=== PATIENT | male | born 1945 | race Two or more races ===

== ENCOUNTER 2022-10-04 09:43 | Inpatient (IN) | payer OTHER ==
[~2022-10-04] VITALS: Ht 165.1 cm; Wt 60.8 kg
[2022-10-05] MEDS ORDERED: ZESTRIL5 MG PO (11:14)
== END 2022-10-18 14:16 | disposition home or self-care (01) | DRG 330 ==
LOC: O/R 10-10 08:10 → SURH 10-10 09:30
PROVIDERS: Internal Medicine Geriatric Medicine; ADMIT Colon & Rectal Surgery; ATTEND Colon & Rectal Surgery
PROC: 0DTN4ZZ Resection of Sigmoid Colon, Percutaneous Endoscopic Approach (ICD-10-PCS; 2022-10-10)
PROC: 0DTP4ZZ Resection of Rectum, Percutaneous Endoscopic Approach (ICD-10-PCS; 2022-10-10)
PROC: 07BB4ZZ Excision of Mesenteric Lymphatic, Percutaneous Endoscopic Approach (ICD-10-PCS; 2022-10-10)
PROC: 07BC4ZZ Excision of Pelvis Lymphatic, Percutaneous Endoscopic Approach (ICD-10-PCS; 2022-10-10)
PROC: 3E0F7SF Introduction of Other Gas into Respiratory Tract, Via Natural or Artificial Opening (ICD-10-PCS; 2022-10-10)
PROC: 0D1B4Z4 Bypass Ileum to Cutaneous, Percutaneous Endoscopic Approach (ICD-10-PCS; principal; 2022-10-10 14:30)
PROC: 0D9670Z Drainage of Stomach with Drainage Device, Via Natural or Artificial Opening (ICD-10-PCS; 2022-10-13)
PROC: 02HV33Z Insertion of Infusion Device into Superior Vena Cava, Percutaneous Approach (ICD-10-PCS; 2022-10-13)
PROC: 3E0436Z Introduction of Nutritional Substance into Central Vein, Percutaneous Approach (ICD-10-PCS; 2022-10-13)
PROC: 4A12X4Z Monitoring of Cardiac Electrical Activity, External Approach (ICD-10-PCS; 2022-10-15)
DX: C20 Malignant neoplasm of rectum (principal); K56.7 Ileus, unspecified; R59.0 Localized enlarged lymph nodes; E87.6 Hypokalemia; I49.9 Cardiac arrhythmia, unspecified; D69.6 Thrombocytopenia, unspecified; F10.10 Alcohol abuse, uncomplicated; I11.9 Hypertensive heart disease without heart failure; Z85.048 Personal history of other malignant neoplasm of rectum, rectosigmoid junction, and anus; Z92.21 Personal history of antineoplastic chemotherapy

== ENCOUNTER 2022-10-24 19:13 | Inpatient (IN) | payer OTHER ==
[~2022-10-24] VITALS: Ht 165.1 cm; Wt 61.2 kg
[~2022-10-24 19:13] MED LIST: ZESTRIL5 MG PO
[2022-10-24] MEDS ORDERED: FUSION PLUS CA1 EACH PO (19:20)
[2022-10-24] MEDS ORDERED: GNP B-50 COMPL0.4 MG PO (19:21)
[2022-10-24] MEDS ORDERED: ACID REDUCER20 M1 PO (19:21)
[2022-10-24] MEDS ORDERED: ABANEU-SL TABL1 EACH SL (19:21)
[2022-10-24] MEDS ORDERED: CHLORDIAZEPOXI1 EACH PO (19:22)
--- NOTE | 2022-10-24 19:22 | NUR ---
SE RECIBE PTE MASCULINO ALERTA Y ORIENTADO EN LAS LAUREN ESFERAS EN COMPANIA DE FAMILIAR EN AMBULANCIA QUIEN REFIERE SANGRADO RECTAL DESDE PATI. PTE DE CON ILEOSTOMIA Y ELIDA GUPTA COLOCADO LLQ, DRENANDO EGRESO COLOR AMARILLO TJ COLOCADO EL PASADO 22 DE ELOINA EN [facility]. SE PRESENTA PTE A Y SE UBICA EN AREA DE OBSERVACION PARA EVALUACION.
--- NOTE | 2022-10-24 21:48 | NUR ---
SE EDUCA A PTE SOBRE [place] MEDICO IAN REFIERE ENTENDER, SE ANAT MUESTRAS DE LABORATORIO UTILIZANDO MEDIDAS ASEPTICAS, SE COLOCA H/L SHAKA DE EDEMA. SE ADMNISTRAN MEDICAMENTOS LOS CUALES TOLERA. SE NOTIFICA ESTUDIO DE CT PENDIENTE A REALIZAR.
[2022-10-24 22:17] LABS: HEMATOCRIT 34.4 % (39.0-48.0); HEMOGLOBIN 11.6 g/dL (13-16.00); MEAN CELL VOLUME 97.1 fL (80.0-100.00); MEAN CORPUSCULAR HEMOGLOBIN 32.8 pg (27.00-32.0); MEAN CORPUSCULAR HGB CONC 33.8 g/dl (32.0-36.0); PLATELET COUNT 330 K/uL (150-450); RED BLOOD COUNT 3.54 M/uL (4.00-6.00); RED CELL DISTRIBUTION WIDTH 13.4 % (11.5-14.5)
--- NOTE | 2022-10-25 01:21 | NUR ---
SE RECIBE PTE ALERTA Y ORIENTADO X3 EN EDI CON BARANDAS ELEVADAS EN COMPANIA DE FAMILIAR. PTE EN POSICION SEMI LUCERO, PTE SE RECIBE CANALIZADO EN BRAZO DERECHO ANGIO #18 AREA SHAKA DE EDEMA Y DE ENROJECIMIENTO. PTE CON DRIP .9NSS BAJANDO A 100ML/HR. PTE CON VENDAJE LIMPIO Y SECO DE HERIDA QUIRURGICA. PTE CON ABDOMEN BLANDO Y DEPRESIBLE. PTE CON ILEOCTOMIA Y DRENAJE SALLY GIVENS DRENANDO 25ML COLOR AMARILLO. SE CANALIZA EN BRAZO MILAGRO ANGIO #18 AREA SHAKA DE EDEMA Y DE ENROJECIMIENTO. SE COMIENZA DRIP DE PROTONIX 80MG/100ML BAJANDO A 10ML/HR.SE EDUCA A PTE FAMILIAR SOBRE TRATAMIENTO MEDICO.
[2022-10-25 06:29] LABS: HEMATOCRIT 31.4 % (39.0-48.0); HEMOGLOBIN 10.9 g/dL (13-16.00); MEAN CELL VOLUME 95.8 fL (80.0-100.00); MEAN CORPUSCULAR HEMOGLOBIN 33.4 pg (27.00-32.0); MEAN CORPUSCULAR HGB CONC 34.9 g/dl (32.0-36.0); PLATELET COUNT 287 K/uL (150-450); RED BLOOD COUNT 3.27 M/uL (4.00-6.00); RED CELL DISTRIBUTION WIDTH 13.1 % (11.5-14.5)
--- NOTE | 2022-10-25 08:00 | NUR ---
SE RECIBE PTE ALERTA Y Y ORIENTADO X 3 EN EDI CON RESPUESTA A ESTIMULOS ACOMPANADO DE FAMILIAR.SE OBSERVA CON LIQUIDOS DE MANTENIMIENTO DE 0.9NSS/100ML BAJANDO 100ML/HR CON ANGIO #18 EN BRAZO LT AREA SE OBSERVA SHAKA DE EDEMA O ERITEMA CON BUEN TUGOR. SE OBSERVA EN ABDOMEN ILEOSTOMIA CON BUEN TUGOR EN PIEL. SE OBSERVA CON CAMBIOS.
[2022-10-26] MEDS ORDERED: LOPERAMIDE2 MG (15:46)
[2022-10-26] MEDS ORDERED: LISINOPRIL5 MG (15:46)
[2022-10-26] MEDS ORDERED: OMEPRAZOLE40 MG (15:46)
[2022-10-26 16:33] LABS: HEMATOCRIT 32.1 % (39.0-48.0); HEMOGLOBIN 10.5 g/dL (13-16.00); MEAN CELL VOLUME 97.4 fL (80.0-100.00); MEAN CORPUSCULAR HEMOGLOBIN 31.8 pg (27.00-32.0); MEAN CORPUSCULAR HGB CONC 32.7 g/dl (32.0-36.0); PLATELET COUNT 272 K/uL (150-450); RED CELL DISTRIBUTION WIDTH 13.1 % (11.5-14.5)
[2022-10-28 13:03] LABS: HEMATOCRIT 28.8 % (39.0-48.0); HEMOGLOBIN 9.5 g/dL (13-16.00); MEAN CELL VOLUME 97.2 fL (80.0-100.00); MEAN CORPUSCULAR HEMOGLOBIN 32.1 pg (27.00-32.0); PLATELET COUNT 211 K/uL (150-450); RED BLOOD COUNT 2.96 M/uL (4.00-6.00); RED CELL DISTRIBUTION WIDTH 13.1 % (11.5-14.5)
[2022-10-28 19:31] LABS: HEMATOCRIT 28.4 % (39.0-48.0); HEMOGLOBIN 9.9 g/dL (13-16.00); MEAN CELL VOLUME 94.8 fL (80.0-100.00); MEAN CORPUSCULAR HEMOGLOBIN 32.8 pg (27.00-32.0); MEAN CORPUSCULAR HGB CONC 34.7 g/dl (32.0-36.0); PLATELET COUNT 231 K/uL (150-450); RED CELL DISTRIBUTION WIDTH 13.6 % (11.5-14.5)
[2022-10-29 08:00] LABS: HEMATOCRIT 30.2 % (39.0-48.0); HEMOGLOBIN 10.5 g/dL (13-16.00); MEAN CORPUSCULAR HEMOGLOBIN 32.9 pg (27.00-32.0); MEAN CORPUSCULAR HGB CONC 34.6 g/dl (32.0-36.0); PLATELET COUNT 219 K/uL (150-450); RED BLOOD COUNT 3.18 M/uL (4.00-6.00); RED CELL DISTRIBUTION WIDTH 13.2 % (11.5-14.5)
[2022-10-30 06:40] LABS: HEMATOCRIT 26.7 % (39.0-48.0); HEMOGLOBIN 9.2 g/dL (13-16.00); MEAN CELL VOLUME 94.6 fL (80.0-100.00); MEAN CORPUSCULAR HEMOGLOBIN 32.7 pg (27.00-32.0); MEAN CORPUSCULAR HGB CONC 34.6 g/dl (32.0-36.0); PLATELET COUNT 211 K/uL (150-450); RED BLOOD COUNT 2.82 M/uL (4.00-6.00); RED CELL DISTRIBUTION WIDTH 13.1 % (11.5-14.5)
[2022-10-31 08:53] LABS: HEMATOCRIT 30.4 % (39.0-48.0); HEMOGLOBIN 10.5 g/dL (13-16.00); MEAN CELL VOLUME 94.7 fL (80.0-100.00); MEAN CORPUSCULAR HEMOGLOBIN 32.6 pg (27.00-32.0); MEAN CORPUSCULAR HGB CONC 34.4 g/dl (32.0-36.0); PLATELET COUNT 233 K/uL (150-450); RED BLOOD COUNT 3.21 M/uL (4.00-6.00); RED CELL DISTRIBUTION WIDTH 13.4 % (11.5-14.5)
[2022-11-02 07:48] LABS: HEMATOCRIT 31.7 % (39.0-48.0); HEMOGLOBIN 10.5 g/dL (13-16.00); MEAN CELL VOLUME 95.5 fL (80.0-100.00); MEAN CORPUSCULAR HEMOGLOBIN 31.5 pg (27.00-32.0); PLATELET COUNT 217 K/uL (150-450); RED BLOOD COUNT 3.32 M/uL (4.00-6.00); RED CELL DISTRIBUTION WIDTH 13.3 % (11.5-14.5)
[2022-11-04 07:35] LABS: HEMATOCRIT 29.4 % (39.0-48.0); HEMOGLOBIN 10.4 g/dL (13-16.00); MEAN CELL VOLUME 93.5 fL (80.0-100.00); MEAN CORPUSCULAR HGB CONC 35.3 g/dl (32.0-36.0); PLATELET COUNT 201 K/uL (150-450); RED BLOOD COUNT 3.14 M/uL (4.00-6.00); RED CELL DISTRIBUTION WIDTH 13.5 % (11.5-14.5)
[2022-11-06] MEDS ORDERED: GNP B-50 COMPL0.4 MG PO (12:50)
[2022-11-06] MEDS ORDERED: ABANEU-SL TABL1 EACH SL (12:50)
[2022-11-06] MEDS ORDERED: VITAMIN B-1100 MG PO (12:50)
[2022-11-06] MEDS ORDERED: FUSION PLUS CA1 EACH PO (12:50)
[2022-11-06] MEDS ORDERED: PRE PROTEIN1 EACH PO (12:50)
[2022-11-06] MEDS ORDERED: MAGNESIUM CHLOR70 MG PO (12:50)
[2022-11-06] MEDS ORDERED: LISINOPRIL5 MG PO (12:50)
[2022-11-06] MEDS ORDERED: OMEPRAZOLE40 MG PO (12:50)
[2022-11-06] MEDS ORDERED: MELATONIN10 M2 PO (12:50)
== END 2022-11-06 22:03 | DRG 393 ==
LOC: ER 19:13 → SURH 10-25 16:12 → SURG 10-25 16:12 → SURH 10-25 17:06
PROVIDERS: General Practice; Internal Medicine; Internal Medicine Geriatric Medicine; ADMIT Colon & Rectal Surgery; ATTEND Colon & Rectal Surgery
PROC: BW28ZZZ Computerized Tomography (CT Scan) of Head (ICD-10-PCS; 2022-10-26)
PROC: 02HV33Z Insertion of Infusion Device into Superior Vena Cava, Percutaneous Approach (ICD-10-PCS; 2022-10-26)
PROC: 0D9P30Z Drainage of Rectum with Drainage Device, Percutaneous Approach (ICD-10-PCS; principal; 2022-10-27)
PROC: B54NZZZ Ultrasonography of Left Upper Extremity Veins (ICD-10-PCS; 2022-10-30)
PROC: BW21YZZ Computerized Tomography (CT Scan) of Abdomen and Pelvis using Other Contrast (ICD-10-PCS; 2022-11-01)
DX: K91.89 Other postprocedural complications and disorders of digestive system (principal); A41.9 Sepsis, unspecified organism; G92.8 Other toxic encephalopathy; K61.1 Rectal abscess; F10.239 Alcohol dependence with withdrawal, unspecified; F10.27 Alcohol dependence with alcohol-induced persisting dementia; D64.9 Anemia, unspecified; I10 Essential (primary) hypertension; G72.89 Other specified myopathies; K43.5 Parastomal hernia without obstruction or gangrene; I80.9 Phlebitis and thrombophlebitis of unspecified site

== ENCOUNTER 2022-11-30 15:51 | Inpatient (IN) | payer OTHER ==
[~2022-11-30] VITALS: Ht 165.1 cm; Wt 46.7 kg
[~2022-11-30 15:51] MED LIST changes: +ABANEU-SL TABL1 EACH SL; +ACID REDUCER20 M1 PO; +CHLORDIAZEPOXI1 EACH PO; +FUSION PLUS CA1 EACH PO; +GNP B-50 COMPL0.4 MG PO; +LISINOPRIL5 MG; +LISINOPRIL5 MG PO; +LOPERAMIDE2 MG; +MAGNESIUM CHLOR70 MG PO; +MELATONIN10 M2 PO; +OMEPRAZOLE40 MG; +OMEPRAZOLE40 MG PO; +PRE PROTEIN1 EACH PO; +VITAMIN B-1100 MG PO
--- NOTE | 2022-11-30 15:58 | NUR ---
PACIENTE MASCULINO ALERTA Y ORIENTADO X3, REFIERE TENER SANGRADO RECTAL, FUE OPERADO POR .
--- NOTE | 2022-11-30 17:01 | NUR ---
SE RECIBE PTE ALERTA ORIENTADO X3.SE ANAT MUESTRAS DE LABORATORIO USANDO MEDIDAS ASEPTICAS.SE ADMINISTRAN MEDICAMENTOS FRANCISCO ORDEN MEDICA.MANEJADO POR FARRUKH RODRIGUEZ.
[2022-11-30 17:06] LABS: HEMATOCRIT 37.7 % (39.0-48.0); HEMOGLOBIN 12.6 g/dL (13-16.00); MEAN CORPUSCULAR HEMOGLOBIN 30.4 pg (27.00-32.0); MEAN CORPUSCULAR HGB CONC 33.4 g/dl (32.0-36.0); PLATELET COUNT 311 K/uL (150-450); RED BLOOD COUNT 4.14 M/uL (4.00-6.00); RED CELL DISTRIBUTION WIDTH 13.7 % (11.5-14.5)
[2022-11-30 17:24] LABS: INR 1.22; PARTIAL THROMBOPLASTIN TIME 28.2 SECONDS (22.0-34.0); PROTHROMBIN TIME 12.6 SECONDS (9.0-11.5)
[2022-11-30 17:28] LABS: BILIRUBIN TOTAL 0.4 mg/dL (0.3-1.2); CALCIUM 9.6 mg/dL (8.5-10.1); CREATININE SERUM 0.8 mg/dL (0.70-1.30); GFR 94.24; GLOBULINA 5.8 G/DL (2.4-3.5); POTASSIUM 4.73 mEq/L (3.5-5.1); TOTAL PROTEIN 8.8 gm/dL (6.4-8.2)
--- NOTE | 2022-11-30 23:18 | NUR ---
SE RECIBE PACIENTE DE TURNO ANTERIOR, ALERTA Y ORIENTADO EN MICKEY LAUREN ESFERAS UBICADO EN K5 EN EDI CON BARANDAS ELEVADAS A NIVEL MAS BAJO EN COMPANIA DE FAMILAIR. IV PATENTE EN RA CON ANGIO #20, SHAKA DE EDEMA O ERITEMA. RECIBIEDNO IV FLUIDS. PACIENTE EN ESPERA DE DR. GASTELUM
--- NOTE | 2022-12-01 07:38 | NUR ---
SE REECIBE PTE MASCULINO DE 76 YRS ALERTA CONCIENTE Y TRANQUILO , EN EDI CON BARABAS ELEVADA, SE LE NEISHA S/V LA CUAL SE DOCUEMTA. SE MAHTIENE EN ESPERA DE MEDICO CONSULTORCON EL DEVI ALVARADO. SE MANTIENE EN ESPEREA DE NASOGASTRICO CON SUBCION INTEMITENTE. SE MANTIENE BAJO OBSERVACION POR CAMBIOS.
--- NOTE | 2022-12-01 07:48 | NUR ---
SE RECIBE PTE MASCULINO DE 76 YRS ALERTA CONCIENTE Y TRANQUILO EN CAMA CON BARABDAS ELEVADA . PTE EN [facility] DE FAMILAIR. PTE EN ESPERA DE MEDICO CONSULTOR POR SANGREDO GASTROINTESTINAL. SE OBSERVA PTE CON .96NSS A 150 EN ANTBRASO DERECHO CON ANGIO #20. SE OBSERVA PTE DESAYUNDO. SE MANTIENE BAJO OBSERVACION POR CAMBIOS PTE AL MOMENTO SHAKA DE DOLOR.
--- NOTE | 2022-12-01 16:18 | NUR ---
SE RECIBE PTE MASCULINO DE TURNO ANTERIOR QUIEN AL MOMENTO NO REFIERE DOLOR. PTE AL MOMENTO CONSULTADO CON DR TOUS. PTE AL MOMENTO CANALIZADO EN GRAZO DERECHO CON ANGIO #20 CON DRIP DE 0.9% NSS A 150 ML/HRA
[2022-12-02 08:39] LABS: HEMATOCRIT 31.4 % (39.0-48.0); HEMOGLOBIN 10.3 g/dL (13-16.00); MEAN CELL VOLUME 92.4 fL (80.0-100.00); MEAN CORPUSCULAR HEMOGLOBIN 30.2 pg (27.00-32.0); MEAN CORPUSCULAR HGB CONC 32.7 g/dl (32.0-36.0); PLATELET COUNT 248 K/uL (150-450); RED CELL DISTRIBUTION WIDTH 13.5 % (11.5-14.5)
[2022-12-02 08:45] LABS: ALBUMIN 2.2 gm/dL (3.4-5.0); BILIRUBIN TOTAL 0.45 mg/dL (0.3-1.2); BILIRUBIN,CONJUGATED 0.2 mg/dL (0.0-0.2); BILIRUBIN,UNCONJUGATED 0.25 mg/dL (0.0-0.6); CALCIUM 8.3 mg/dL (8.5-10.1); CHOL HDL RATIO 4.5 (0-5.0); CREATININE SERUM 0.77 mg/dL (0.70-1.30); GFR 98.49; GLOBULINA 3.9 G/DL (2.4-3.5); POTASSIUM 3.9 mEq/L (3.5-5.1); TOTAL PROTEIN 6.1 gm/dL (6.4-8.2)
[2022-12-02 08:52] LABS: ERYTHROCYTE SEDIMENTATION RATE 107 mm/hr
[2022-12-02 08:54] LABS: C-REACTIVE PROTEIN 4.06 MG/DL (0.00-0.29)
[2022-12-02 09:17] LABS: INR 1.22; PARTIAL THROMBOPLASTIN TIME 30.5 SECONDS (22.0-34.0); PROTHROMBIN TIME 12.6 SECONDS (9.0-11.5)
[2022-12-02 10:33] LABS: URINE APPEARANCE Turbid; URINE BILIRRUBIN Negative (NEGATIVE); URINE BLOOD Negative; URINE COLOR Dark Yellow; URINE GLUCOSE Negative (NEGATIVE); URINE LEUKOCYTE Trace; URINE NITRATE Negative; URINE PROTEIN 30 (NEGATIVE); URINE UROBILINOGEN 0.2 E.U./dl
[2022-12-02 10:37] LABS: URINE EPITHELIAL CELLS 22.4 uL (0.0-38.8); URINE RBC 8.3 uL (0.0-20.8); URINE WBC 18.3 uL (0.0-23.2)
[2022-12-02 10:46] LABS: URINE CRYSTALS MANY /HPF; ob NEGATIVE (NEGATIVE)
== END 2022-12-03 19:56 | disposition home or self-care (01) | DRG 394 ==
LOC: ER 15:52 → SURH 12-01 18:24
PROVIDERS: General Practice; ADMIT Colon & Rectal Surgery; ATTEND Colon & Rectal Surgery
PROC: BW21YZZ Computerized Tomography (CT Scan) of Abdomen and Pelvis using Other Contrast (ICD-10-PCS; principal; 2022-11-30)
DX: K61.1 Rectal abscess (principal); C20 Malignant neoplasm of rectum; K56.7 Ileus, unspecified; I11.9 Hypertensive heart disease without heart failure; Z87.891 Personal history of nicotine dependence

== ENCOUNTER 2023-03-26 07:14 | Outpatient (CLI) | payer OTHER | END 2023-03-26 07:18 | disposition home or self-care (01) | LOC: RX STUDY 07:14 | PROVIDERS: ATTEND Colon & Rectal Surgery | DX: C20 Malignant neoplasm of rectum (principal) ==

== ENCOUNTER 2023-08-21 11:00 | Inpatient (IN) | payer OTHER ==
[2023-08-21] MEDS ORDERED: TRIUMEQ TABLET1 EACH PO (13:26)
[2023-08-21] MEDS ORDERED: FUSION PLUS CA1 EACH PO (13:26)
[2023-08-21] MEDS ORDERED: OMEPRAZOLE MAGN20 MG PO (13:26)
[2023-08-29] MEDS ORDERED: PHYTONADIONE 10 MG/ML AMPUL IV NR (06:00)
[2023-08-29] MEDS ORDERED: SERTRALINE HCL25 MG (09:41)
[2023-08-29] MEDS ORDERED: CEFTRIAXONE SODIUM 2,000 MG VIAL IV ONE (13:00)
[2023-08-29] MEDS ORDERED: SUGAMMADEX SODIUM 200 MG/2 ML VIAL IV ONE (13:00)
[2023-08-29] MEDS ORDERED: BUPIVACAINE HCL/PF 0.25% 30ML VIAL InF ONE (13:00)
[2023-08-29] MEDS ORDERED: METRONIDAZOLE/SODIUM CHLORIDE 500 MG/100 ML PIGGYBACK IV ONE (13:00)
[2023-08-29] MEDS ORDERED: CHLORHEXIDINE GLUCONATE 120 ML BOTTLE TOP ONE (13:00)
[2023-08-29] MEDS ORDERED: LIDOCAINE HCL 1%/EPINEPHRINE 20ML VIAL IJ ONE (13:00)
[2023-08-29] MEDS ORDERED: ONDANSETRON HCL 2 MG/ML VIAL IV PRN (13:15)
[2023-08-29] MEDS ORDERED: MORPHINE SULFATE 4 MG/ML CARTRIDGE IV PRN (13:15)
[2023-08-29] MEDS ORDERED: RINGERS SOLUTION,LACTATED 1,000 ML IV SCH (13:15)
[2023-08-29] MEDS ORDERED: OxyCODONE HCL 5 MG TABLET (ROXICODONE) PO PRN (13:15)
[2023-08-29] MEDS ORDERED: ENALAPRILAT DIHYDRATE 1.25 MG/ML VIAL IV PRN (13:45)
[2023-08-29] MEDS ORDERED: ACETAMINOPHEN 500 MG GEL..CAP PO SCH (14:00)
[2023-08-29 15:29] LABS: HEMATOCRIT 38.2 % (39.0-48.0); HEMOGLOBIN 12.8 g/dL (13-16.00); MEAN CELL VOLUME 92.8 fL (80.0-100.00); MEAN CORPUSCULAR HEMOGLOBIN 31.1 pg (27.00-32.0); MEAN CORPUSCULAR HGB CONC 33.5 g/dl (32.0-36.0); PLATELET COUNT 149 K/uL (150-450); RED BLOOD COUNT 4.11 M/uL (4.00-6.00); RED CELL DISTRIBUTION WIDTH 15.8 % (11.5-14.5)
[2023-08-29] MEDS ORDERED: POLYETHYLENE GLYCOL 3350 17 GM BLIST.PACK PO SCH (17:00)
[2023-08-29] MEDS ORDERED: GABAPENTIN 300 MG CAPSULE PO SCH (17:00)
[2023-08-29] MEDS ORDERED: SIMETHICONE 125 MG CAPSULE PO SCH (17:00)
[2023-08-29] MEDS ORDERED: CELECOXIB 200 MG CAPSULE PO SCH (17:00)
[2023-08-29] MEDS ORDERED: METOCLOPRAMIDE HCL 5 MG/ML VIAL IV SCH (17:00)
[2023-08-29] MEDS ORDERED: HYOSCYAMINE SULFATE 0.125 MG TAB.SUBL SL SCH (17:00)
[2023-08-29] MEDS ORDERED: FAMOTIDINE/PF 20 MG/2 ML VIAL IV PUSH SCH (21:00)
[2023-08-30] MEDS ORDERED: PANTOPRAZOLE SODIUM 40 MG/VIAL VIAL IV SCH (06:00)
[2023-08-30 07:18] LABS: HEMOGLOBIN 10.3 g/dL (13-16.00); MEAN CORPUSCULAR HEMOGLOBIN 31.1 pg (27.00-32.0); MEAN CORPUSCULAR HGB CONC 34.2 g/dl (32.0-36.0); PLATELET COUNT 193 K/uL (150-450)
[2023-08-30 07:30] LABS: ALBUMIN 2.8 gm/dL (3.4-5.0); CALCIUM 8.5 mg/dL (8.5-10.1); CREATININE SERUM 0.87 mg/dL (0.70-1.30); GFR 85.32; MAGNESIUM 1.5 mg/dL (1.8-2.4); PHOSPHOROUS 5.1 mg/dL (2.5-4.9); POTASSIUM 4.39 mEq/L (3.5-5.1)
[2023-08-30] MEDS ORDERED: MAGNESIUM SULFATE IN WATER 50 ML IV NR (08:15)
[2023-08-30] MEDS ORDERED: LACTOBACILLUS ACIDOPHILUS 1 CAP CAP PO SCH (09:00)
[2023-08-30] MEDS ORDERED: SOD FERRIC GLUC COMPLX/SUCROSE 62.5 MG in 0.9 % SODIUM CHLORIDE 50 ML IV SCH (09:00)
[2023-08-30] MEDS ORDERED: Cyanocobalamin/Mecobalamin 1 TAB.SL SL SCH (09:00)
[2023-08-30] MEDS ORDERED: LACTULOSE 20 G/30 ML BLIST.PACK PO SCH (09:00)
[2023-08-30] MEDS ORDERED: CEFADROXIL 500 MG CAPSULE PO SCH (11:28)
[2023-08-30] MEDS ORDERED: ENOXAPARIN SODIUM 40 MG/0.4 ML SYRINGE SUBCUTANEO SCH (17:00)
[2023-08-31 06:10] LABS: HEMATOCRIT 27.9 % (39.0-48.0); HEMOGLOBIN 9.6 g/dL (13-16.00); MEAN CELL VOLUME 89.6 fL (80.0-100.00); MEAN CORPUSCULAR HEMOGLOBIN 30.9 pg (27.00-32.0); MEAN CORPUSCULAR HGB CONC 34.5 g/dl (32.0-36.0); PLATELET COUNT 178 K/uL (150-450); RED BLOOD COUNT 3.11 M/uL (4.00-6.00); RED CELL DISTRIBUTION WIDTH 15.7 % (11.5-14.5)
[2023-08-31] MEDS ORDERED: PANTOPRAZOLE SODIUM 80 MG in 0.9 % SODIUM CHLORIDE 100 ML IV SCH (06:15)
[2023-08-31 06:30] LABS: CALCIUM 8.9 mg/dL (8.5-10.1); CREATININE SERUM 0.9 mg/dL (0.70-1.30); GFR 82.04; MAGNESIUM 1.6 mg/dL (1.8-2.4); PHOSPHOROUS 2.6 mg/dL (2.5-4.9); POTASSIUM 3.22 mEq/L (3.5-5.1)
[2023-08-31] MEDS ORDERED: MAGNESIUM SULFATE IN WATER 50 ML IV NR (08:45)
[2023-08-31] MEDS ORDERED: POTASSIUM CHLORIDE 20MEQ/100ML H2O PB IV NR (08:45)
[2023-08-31] MEDS ORDERED: ENOXAPARIN SODIUM 40 MG/0.4 ML SYRINGE SUBCUTANEO SCH (09:00)
[2023-09-01 08:05] LABS: HEMATOCRIT 28.7 % (39.0-48.0); MEAN CORPUSCULAR HGB CONC 33.8 g/dl (32.0-36.0); PLATELET COUNT 154 K/uL (150-450); RED BLOOD COUNT 3.15 M/uL (4.00-6.00); RED CELL DISTRIBUTION WIDTH 15.7 % (11.5-14.5)
[2023-09-01 08:09] LABS: CALCIUM 8.6 mg/dL (8.5-10.1); CREATININE SERUM 0.74 mg/dL (0.70-1.30); GFR 102.83; MAGNESIUM 1.8 mg/dL (1.8-2.4); POTASSIUM 3.71 mEq/L (3.5-5.1)
[2023-09-01 08:10] LABS: HEMOGLOBIN 9.7 g/dL (13-16.00); MEAN CORPUSCULAR HEMOGLOBIN 30.7 pg (27.00-32.0)
[2023-09-01 08:33] LABS: PHOSPHOROUS 1.9 mg/dL (2.5-4.9)
[2023-09-01] MEDS ORDERED: POTASSIUM PHOS,M-BASIC-D-BASIC 3 MM/ML VIAL IV NR (10:30)
[2023-09-03] MEDS ORDERED: HYOSCYAMINE0.125 M1 SL (08:59)
[2023-09-03] MEDS ORDERED: INTESTINEX680 M1 PO (09:00)
[2023-09-03] MEDS ORDERED: SIMETHICONE125 M1 PO (09:00)
[2023-09-03] MEDS ORDERED: GABAPENTIN300 MG PO (09:00)
[2023-09-03] MEDS ORDERED: PAIN RELIEVER500 M2 PO (09:00)
[2023-09-03] MEDS ORDERED: POLY119PG PO (09:01)
[2023-09-03] MEDS ORDERED: CELEBREX200MG PO (09:01)
== END 2023-09-03 10:29 | disposition home or self-care (01) | DRG 349 ==
LOC: SURG 08-29 07:56 → O/R 08-29 07:56 → SURH 08-29 11:00 → SURG 08-29 14:10
PROVIDERS: Internal Medicine Geriatric Medicine; ADMIT Colon & Rectal Surgery; ATTEND Colon & Rectal Surgery
PROC: 0DBB4ZZ Excision of Ileum, Percutaneous Endoscopic Approach (ICD-10-PCS; principal; 2023-08-29 12:45)
DX: C20 Malignant neoplasm of rectum (principal)

== ENCOUNTER 2024-02-08 15:02 | Inpatient (IN) | payer OTHER ==
[~2024-02-08] VITALS: Ht 165.1 cm; Wt 44.5 kg
[~2024-02-08 15:02] MED LIST changes: +CELEBREX200MG PO; +GABAPENTIN300 MG PO; +HYOSCYAMINE0.125 M1 SL; +INTESTINEX680 M1 PO; +OMEPRAZOLE MAGN20 MG PO; +PAIN RELIEVER500 M2 PO; +POLY119PG PO; +SERTRALINE HCL25 MG; +SIMETHICONE125 M1 PO; +TRIUMEQ TABLET1 EACH PO
[2024-02-08] MEDS ORDERED: 0.9 % SODIUM CHLORIDE 1,000 ML IV SCH ×2 (15:30→19:45)
[2024-02-08] MEDS ORDERED: PIPERACILLIN/TAZOBACTAM SODIUM 3.375 GM VIAL IV ONE (15:30)
[2024-02-08 16:32] LABS: HEMATOCRIT 29.7 % (39.0-48.0); HEMOGLOBIN 9.9 g/dL (13-16.00); MEAN CELL VOLUME 85.3 fL (80.0-100.00); MEAN CORPUSCULAR HEMOGLOBIN 28.5 pg (27.00-32.0); MEAN CORPUSCULAR HGB CONC 33.4 g/dl (32.0-36.0); PH,URINE 6.5 (5.0-8.0); PLATELET COUNT 235 K/uL (150-450); RED BLOOD COUNT 3.49 M/uL (4.00-6.00); RED CELL DISTRIBUTION WIDTH 16.3 % (11.5-14.5); URINE APPEARANCE Turbid; URINE BILIRRUBIN Negative (NEGATIVE); URINE BLOOD Small; URINE COLOR Yellow; URINE GLUCOSE Negative (NEGATIVE); URINE KETONE Trace (NEGATIVE); URINE LEUKOCYTE Large; URINE NITRATE Negative; URINE PROTEIN 30 (NEGATIVE); URINE UROBILINOGEN 0.2 E.U./dl
[2024-02-08 16:35] LABS: URINE CAST 1.91 uL (0.0-1.40); URINE EPITHELIAL CELLS 27.8 uL (0.0-38.8); URINE RBC 10.1 uL (0.0-20.8)
[2024-02-08 16:49] LABS: INR 1.29; PARTIAL THROMBOPLASTIN TIME 31.6 SECONDS (22.0-34.0); PROTHROMBIN TIME 13.8 SECONDS (9.0-11.5); URINE WBC > 5548.3 uL (0.0-23.2)
[2024-02-08 16:54] LABS: ALBUMIN 2.2 gm/dL (3.4-5.0); BILIRUBIN TOTAL 0.26 mg/dL (0.3-1.2); CALCIUM 8.7 mg/dL (8.5-10.1); CREATININE SERUM 0.72 mg/dL (0.70-1.30); GFR 105.85; GLOBULINA 4.5 G/DL (2.4-3.5); POTASSIUM 3.88 mEq/L (3.5-5.1); TOTAL PROTEIN 6.7 gm/dL (6.4-8.2); URINE MUCUS SCANT
[2024-02-08] MEDS ORDERED: METRONIDAZOLE/SODIUM CHLORIDE 100 ML IV SCH (19:36)
[2024-02-08] MEDS ORDERED: THIAMINE HCL 100 MG/ML 2 ML VIAL IV SCH (19:36)
[2024-02-08] MEDS ORDERED: ONDANSETRON HCL 4 MG in 0.9 % SODIUM CHLORIDE 50 ML IV PRN (19:45)
[2024-02-08] MEDS ORDERED: CIPROFLOXACIN IN 5 % DEXTROSE 200 ML IV SCH (21:00)
[2024-02-08] MEDS ORDERED: LORazepam 2 MG/ML VIAL IV ONE (21:00)
[2024-02-09 00:59] VITALS: BP 127/70; O2SAT 99
[2024-02-09 08:00] VITALS: BP 111/58; O2SAT 97
[2024-02-09] MEDS ORDERED: LISINOPRIL 2.5 MG TABLET PO SCH (09:00)
[2024-02-09] MEDS ORDERED: CHLORDIAZEPOXIDE HCL 25 MG CAPSULE PO SCH (09:00)
[2024-02-09] MEDS ORDERED: FAMOTIDINE/PF 20 MG in 0.9 % SODIUM CHLORIDE 8 ML IV PUSH SCH (09:00)
[2024-02-09] MEDS ORDERED: ENOXAPARIN SODIUM 40 MG/0.4 ML SYRINGE SUBCUTANEO SCH (09:00)
[2024-02-09 16:17] VITALS: BP 130/61; O2SAT 100
[2024-02-09] MEDS ORDERED: AA 4.25%/CAL/LYTES/DEXT 5% 1,000 ML PERIFERAL SCH (17:00)
[2024-02-10 00:20] VITALS: BP 109/70; O2SAT 99
[2024-02-10 08:00] VITALS: BP 137/72; O2SAT 98
[2024-02-10 16:06] VITALS: BP 125/72; O2SAT 98
[2024-02-11 00:14] VITALS: BP 111/74; O2SAT 98
[2024-02-11 07:56] LABS: HEMATOCRIT 27.8 % (39.0-48.0); HEMOGLOBIN 9.3 g/dL (13-16.00); MEAN CELL VOLUME 85.8 fL (80.0-100.00); MEAN CORPUSCULAR HEMOGLOBIN 28.8 pg (27.00-32.0); MEAN CORPUSCULAR HGB CONC 33.6 g/dl (32.0-36.0); PLATELET COUNT 252 K/uL (150-450); RED BLOOD COUNT 3.24 M/uL (4.00-6.00); RED CELL DISTRIBUTION WIDTH 15.3 % (11.5-14.5)
[2024-02-11 08:51] LABS: ALBUMIN 2.1 gm/dL (3.4-5.0); BILIRUBIN TOTAL 0.32 mg/dL (0.3-1.2); CALCIUM 8.2 mg/dL (8.5-10.1); CREATININE SERUM 0.48 mg/dL (0.70-1.30); GFR 169.01; GLOBULINA 3.6 G/DL (2.4-3.5); POTASSIUM 4.03 mEq/L (3.5-5.1); TOTAL PROTEIN 5.7 gm/dL (6.4-8.2)
[2024-02-11 10:15] VITALS: BP 150/73; O2SAT 99
[2024-02-11] MEDS ORDERED: SOD FERRIC GLUC COMPLX/SUCROSE 62.5 MG in 0.9 % SODIUM CHLORIDE 50 ML IV SCH (12:00)
[2024-02-11] MEDS ORDERED: ENALAPRILAT DIHYDRATE 1.25 MG/ML VIAL IV PRN (12:45)
[2024-02-11] MEDS ORDERED: AMPICILLIN SODIUM/SULBACTAM NA 3,000 MG VIAL IV NR (14:30)
[2024-02-11 17:00] VITALS: BP 152/78; O2SAT 97
[2024-02-11] MEDS ORDERED: AMINO ACIDS/PROTEIN HYDROLYS 30 ML BLIST.PACK PO SCH (17:00)
[2024-02-11] MEDS ORDERED: Cyanocobalamin/Mecobalamin 1 TAB.SL SL SCH (17:00)
[2024-02-11] MEDS ORDERED: AMPICILLIN SODIUM/SULBACTAM NA 3,000 MG VIAL IV SCH (20:00)
[2024-02-11] MEDS ORDERED: CHLORDIAZEPOXIDE HCL 25 MG CAPSULE PO SCH (21:00)
[2024-02-12 01:17] VITALS: BP 105/59; O2SAT 100
[2024-02-12 06:51] LABS: HEMATOCRIT 28.7 % (39.0-48.0); HEMOGLOBIN 9.6 g/dL (13-16.00); MEAN CELL VOLUME 84.7 fL (80.0-100.00); MEAN CORPUSCULAR HEMOGLOBIN 28.5 pg (27.00-32.0); MEAN CORPUSCULAR HGB CONC 33.7 g/dl (32.0-36.0); PLATELET COUNT 277 K/uL (150-450); RED BLOOD COUNT 3.38 M/uL (4.00-6.00); RED CELL DISTRIBUTION WIDTH 15.5 % (11.5-14.5)
[2024-02-12 07:20] LABS: ERYTHROCYTE SEDIMENTATION RATE 54 mm/hr
[2024-02-12 07:26] LABS: CALCIUM 8.5 mg/dL (8.5-10.1); CREATININE SERUM 0.63 mg/dL (0.70-1.30); GFR 123.49; MAGNESIUM 1.9 mg/dL (1.8-2.4); PHOSPHOROUS 3.1 mg/dL (2.5-4.9); POTASSIUM 4.4 mEq/L (3.5-5.1)
[2024-02-12 07:31] LABS: C-REACTIVE PROTEIN 5.09 MG/DL (0.00-0.29)
[2024-02-12 08:00] VITALS: BP 123/57; O2SAT 98
[2024-02-12] MEDS ORDERED: VANCOMYCIN HCL 125 MG/7.5 ML BLIST.PACK PO SCH (14:00)
[2024-02-12 16:00] VITALS: BP 108/59; O2SAT 96
[2024-02-13 00:10] VITALS: BP 112/69; O2SAT 97
[2024-02-13 08:00] VITALS: BP 126/65; O2SAT 100
[2024-02-13 16:00] VITALS: BP 113/71; O2SAT 97
[2024-02-14 01:29] VITALS: BP 132/70; O2SAT 97
[2024-02-14 09:20] VITALS: BP 135/69; O2SAT 100
[2024-02-14 10:05] LABS: HEMATOCRIT 26.2 % (39.0-48.0); MEAN CELL VOLUME 84.5 fL (80.0-100.00); MEAN CORPUSCULAR HGB CONC 33.8 g/dl (32.0-36.0); PLATELET COUNT 276 K/uL (150-450); RED CELL DISTRIBUTION WIDTH 15.6 % (11.5-14.5)
[2024-02-14 10:06] LABS: MEAN CORPUSCULAR HEMOGLOBIN 28.7 pg (27.00-32.0)
[2024-02-14 10:07] LABS: HEMOGLOBIN 8.9 g/dL (13-16.00)
[2024-02-14] MEDS ORDERED: FUROsemide 20 MG/2 ML VIAL IV SCH (10:15)
[2024-02-14 10:46] LABS: CALCIUM 8.2 mg/dL (8.5-10.1); CREATININE SERUM 0.48 mg/dL (0.70-1.30); GFR 169.01; MAGNESIUM 1.8 mg/dL (1.8-2.4); PHOSPHOROUS 2.8 mg/dL (2.5-4.9); POTASSIUM 4.48 mEq/L (3.5-5.1)
[2024-02-14 11:03] LABS: C-REACTIVE PROTEIN 1.56 MG/DL (0.00-0.29)
[2024-02-14 16:00] VITALS: BP 117/69; O2SAT 97
[2024-02-15] VITALS: BP 131/71; O2SAT 98
[2024-02-15 08:00] VITALS: BP 132/65; O2SAT 98
[2024-02-15 16:16] VITALS: BP 125/58; O2SAT 96
[2024-02-16 01:22] VITALS: BP 122/62; O2SAT 96
[2024-02-16 06:46] LABS: HEMATOCRIT 35.7 % (39.0-48.0); HEMOGLOBIN 11.8 g/dL (13-16.00); MEAN CELL VOLUME 83.9 fL (80.0-100.00); MEAN CORPUSCULAR HEMOGLOBIN 27.8 pg (27.00-32.0); MEAN CORPUSCULAR HGB CONC 33.1 g/dl (32.0-36.0); PLATELET COUNT 282 K/uL (150-450); RED BLOOD COUNT 4.26 M/uL (4.00-6.00)
[2024-02-16 07:34] LABS: CALCIUM 8.6 mg/dL (8.5-10.1); CREATININE SERUM 0.55 mg/dL (0.70-1.30); GFR 144.44; MAGNESIUM 1.7 mg/dL (1.8-2.4); PHOSPHOROUS 3.3 mg/dL (2.5-4.9); POTASSIUM 4.15 mEq/L (3.5-5.1)
[2024-02-16 08:00] VITALS: BP 127/69; O2SAT 100
[2024-02-16 16:00] VITALS: BP 92/58; O2SAT 97
[2024-02-16] MEDS ORDERED: MAGNESIUM SULFATE/D5W 100 ML IV NR (16:00)
[2024-02-17] VITALS: BP 108/65; O2SAT 95
[2024-02-17 08:00] VITALS: BP 120/78; O2SAT 97
[2024-02-17 16:00] VITALS: BP 103/62; O2SAT 96
[2024-02-18 01:05] VITALS: BP 130/79; O2SAT 100
[2024-02-18 06:09] LABS: HEMATOCRIT 35.3 % (39.0-48.0); HEMOGLOBIN 11.7 g/dL (13-16.00); MEAN CELL VOLUME 84.8 fL (80.0-100.00); MEAN CORPUSCULAR HEMOGLOBIN 28.2 pg (27.00-32.0); MEAN CORPUSCULAR HGB CONC 33.2 g/dl (32.0-36.0); PLATELET COUNT 252 K/uL (150-450); RED BLOOD COUNT 4.17 M/uL (4.00-6.00)
[2024-02-18 06:46] LABS: ALBUMIN 2.2 gm/dL (3.4-5.0); BILIRUBIN TOTAL 0.28 mg/dL (0.3-1.2); CALCIUM 8.3 mg/dL (8.5-10.1); CREATININE SERUM 0.62 mg/dL (0.70-1.30); GFR 125.79; GLOBULINA 3.5 G/DL (2.4-3.5); MAGNESIUM 1.7 mg/dL (1.8-2.4); POTASSIUM 4.22 mEq/L (3.5-5.1); TOTAL PROTEIN 5.7 gm/dL (6.4-8.2)
== END 2024-02-19 07:25 | disposition home or self-care (01) | DRG 374 ==
LOC: ER 15:02 → SURH 20:04
PROVIDERS: Emergency Medicine; Internal Medicine; Internal Medicine Geriatric Medicine; Specialist; ADMIT Colon & Rectal Surgery; ATTEND Colon & Rectal Surgery
PROC: 3E0336Z Introduction of Nutritional Substance into Peripheral Vein, Percutaneous Approach (ICD-10-PCS; 2024-02-09)
PROC: BW3GZZZ Magnetic Resonance Imaging (MRI) of Pelvic Region (ICD-10-PCS; principal; 2024-02-11)
PROC: 02HV33Z Insertion of Infusion Device into Superior Vena Cava, Percutaneous Approach (ICD-10-PCS; 2024-02-11)
PROC: 3E0436Z Introduction of Nutritional Substance into Central Vein, Percutaneous Approach (ICD-10-PCS; 2024-02-11)
PROC: 30233N1 Transfusion of Nonautologous Red Blood Cells into Peripheral Vein, Percutaneous Approach (ICD-10-PCS; 2024-02-14)
DX: D49.0 Neoplasm of unspecified behavior of digestive system (principal); K65.1 Peritoneal abscess; A04.72 Enterocolitis due to Clostridium difficile, not specified as recurrent; Z68.1 Body mass index [BMI] 19.9 or less, adult; C19 Malignant neoplasm of rectosigmoid junction; K62.89 Other specified diseases of anus and rectum; D64.89 Other specified anemias; M51.369 Other intervertebral disc degeneration, lumbar region without mention of lumbar back pain or lower extremity pain; F10.21 Alcohol dependence, in remission; Z92.21 Personal history of antineoplastic chemotherapy; Z93.2 Ileostomy status
CPT/HCPCS: 72198

== ENCOUNTER 2024-04-01 20:41 | Inpatient (IN) | payer OTHER ==
[~2024-04-01] VITALS: Ht 170.2 cm; Wt 52.6 kg
[2024-04-01] MEDS ORDERED: 0.9 % SODIUM CHLORIDE 1,000 ML IV SCH (21:30)
[2024-04-01 21:58] LABS: HEMATOCRIT 28.4 % (39.0-48.0); HEMOGLOBIN 9.3 g/dL (13-16.00); MEAN CELL VOLUME 86.5 fL (80.0-100.00); MEAN CORPUSCULAR HEMOGLOBIN 28.3 pg (27.00-32.0); MEAN CORPUSCULAR HGB CONC 32.7 g/dl (32.0-36.0); PLATELET COUNT 245 K/uL (150-450); RED BLOOD COUNT 3.28 M/uL (4.00-6.00)
[2024-04-01] MEDS ORDERED: BARIUM SULFATE 450 ML ORAL.SUSP PO ONE (22:11)
[2024-04-01 22:25] LABS: INR 1.28; PROTHROMBIN TIME 13.7 SECONDS (9.0-11.5)
[2024-04-01 22:27] LABS: CALCIUM 8.8 mg/dL (8.5-10.1); CREATININE SERUM 0.73 mg/dL (0.70-1.30); GFR 104.18; POTASSIUM 4.18 mEq/L (3.5-5.1)
[2024-04-01 23:32] LABS: PH,URINE >= 9.0 (5.0-8.0); URINE APPEARANCE Turbid; URINE BILIRRUBIN Negative (NEGATIVE); URINE BLOOD Small; URINE COLOR Yellow; URINE GLUCOSE Negative (NEGATIVE); URINE KETONE Negative (NEGATIVE); URINE LEUKOCYTE Large; URINE NITRATE Negative; URINE PROTEIN 30 (NEGATIVE); URINE UROBILINOGEN 0.2 E.U./dl
[2024-04-01 23:35] LABS: URINE CAST 20.14 uL (0.0-1.40); URINE EPITHELIAL CELLS 91.8 uL (0.0-38.8); URINE WBC 354.1 uL (0.0-23.2)
[2024-04-02 00:26] LABS: URINE BACTERIA > 9821.5 uL (0.0-1933); URINE RBC 1.6 uL (0.0-20.8)
[2024-04-02 00:31] LABS: URINE CRYSTALS MODERATE /HPF
[2024-04-02 00:32] LABS: URINE MUCUS SCANT
[2024-04-02 04:40] LABS: HEMATOCRIT 28.7 % (39.0-48.0); MEAN CELL VOLUME 84.5 fL (80.0-100.00); PLATELET COUNT 241 K/uL (150-450); RED BLOOD COUNT 3.39 M/uL (4.00-6.00); RED CELL DISTRIBUTION WIDTH 17.9 % (11.5-14.5)
[2024-04-02 04:43] LABS: HEMOGLOBIN 9.7 g/dL (13-16.00); MEAN CORPUSCULAR HEMOGLOBIN 28.6 pg (27.00-32.0)
[2024-04-02] MEDS ORDERED: CIPROFLOXACIN IN 5 % DEXTROSE 400 MG/200 ML PIGGYBAG IV STA (05:28)
[2024-04-02] MEDS ORDERED: CIPROFLOXACIN IN 5 % DEXTROSE 400 MG/200 ML PIGGYBAG IV ONE ×2 (06:07→21:37)
[2024-04-02] MEDS ORDERED: THIAMINE HCL 100 MG/ML 2 ML VIAL IV SCH (18:25)
[2024-04-02] MEDS ORDERED: METRONIDAZOLE/SODIUM CHLORIDE 100 ML IV SCH (18:26)
[2024-04-02] MEDS ORDERED: CHLORDIAZEPOXIDE HCL 25 MG CAPSULE PO SCH (18:27)
[2024-04-02] MEDS ORDERED: ONDANSETRON HCL 4 MG in 0.9 % SODIUM CHLORIDE 50 ML IV PRN (18:30)
[2024-04-02] MEDS ORDERED: 0.9 % SODIUM CHLORIDE 1,000 ML IV SCH (18:30)
[2024-04-02] MEDS ORDERED: ACETAMINOPHEN 500 MG GEL..CAP PO PRN (18:30)
[2024-04-02] MEDS ORDERED: CIPROFLOXACIN IN 5 % DEXTROSE 200 ML IV SCH (21:00)
[2024-04-02] MEDS ORDERED: THIAMINE HCL 100 MG/ML 2 ML VIAL ONE (21:37)
[2024-04-02] MEDS ORDERED: METRONIDAZOLE/SODIUM CHLORIDE 500 MG/100 ML PIGGYBACK IV ONE (21:38)
[2024-04-02 22:09] VITALS: BP 108/67; O2SAT 100
[2024-04-03 00:53] VITALS: BP 123/76; O2SAT 100
[2024-04-03] MEDS ORDERED: METRONIDAZOLE/SODIUM CHLORIDE 500 MG/100 ML PIGGYBACK IV ONE (07:19)
[2024-04-03] MEDS ORDERED: CIPROFLOXACIN IN 5 % DEXTROSE 400 MG/200 ML PIGGYBAG IV ONE (07:19)
[2024-04-03] MEDS ORDERED: THIAMINE HCL 100 MG/ML 2 ML VIAL ONE (07:19)
[2024-04-03 07:42] VITALS: BP 110/78; O2SAT 98
[2024-04-03] MEDS ORDERED: IRON FUM,PS/FOLIC/BCOMP,C NO.9 1 CAP CAPSULE PO SCH (09:00)
[2024-04-03] MEDS ORDERED: PANTOPRAZOLE SODIUM 40 MG/VIAL VIAL IV SCH (09:00)
[2024-04-03] MEDS ORDERED: SOD FERRIC GLUC COMPLX/SUCROSE 62.5 MG in 0.9 % SODIUM CHLORIDE 50 ML IV SCH (13:22)
[2024-04-03] MEDS ORDERED: MEROPENEM 500 MG in 0.9 % SODIUM CHLORIDE 50 ML IV SCH (14:00)
[2024-04-03] MEDS ORDERED: FUROsemide 20 MG/2 ML VIAL IV SCH (14:00)
[2024-04-03] MEDS ORDERED: VANCOMYCIN HCL 1,000 MG VIAL ONE (15:35)
[2024-04-03 16:00] VITALS: BP 96/63; O2SAT 97
[2024-04-03] MEDS ORDERED: ENOXAPARIN SODIUM 40 MG/0.4 ML SYRINGE SUBCUTANEO SCH (17:00)
[2024-04-03] MEDS ORDERED: VANCOMYCIN HCL 1,000 MG VIAL IV SCH (17:00)
[2024-04-03] MEDS ORDERED: VANCOMYCIN HCL 500 MG VIAL IV SCH (21:00)
[2024-04-04] VITALS (13 sets, daily range): BP systolic 80–107; BP diastolic 55–71; O2SAT 96–99
[2024-04-04] MEDS ORDERED: ADENOSINE 3 MG/ML VIAL IV STA (11:50)
[2024-04-04] MEDS ORDERED: ADENOSINE 3 MG/ML VIAL IV NR ×2 (12:26→14:15)
[2024-04-04] MEDS ORDERED: METOPROLOL TARTRATE 5MG/5ML AMPUL IV STA (12:33)
[2024-04-04] MEDS ORDERED: METOPROLOL TARTRATE 25 MG TABLET PO SCH (21:00)
[2024-04-05 01:00] VITALS: BP 106/64; O2SAT 98
[2024-04-05 08:00] VITALS: BP 113/75; O2SAT 97
[2024-04-05 08:07] LABS: URINE APPEARANCE Clear; URINE BILIRRUBIN Negative (NEGATIVE); URINE BLOOD NHT; URINE COLOR Yellow; URINE GLUCOSE Negative (NEGATIVE); URINE LEUKOCYTE Small; URINE NITRATE Negative; URINE PROTEIN Trace (NEGATIVE); URINE UROBILINOGEN 0.2 E.U./dl
[2024-04-05 08:10] LABS: URINE BACTERIA 50.1 uL (0.0-1933); URINE CAST 1.76 uL (0.0-1.40); URINE EPITHELIAL CELLS 25.6 uL (0.0-38.8); URINE RBC 70.4 uL (0.0-20.8)
[2024-04-05 08:15] LABS: HEMOGLOBIN 12.1 g/dL (13-16.00); MEAN CELL VOLUME 86.5 fL (80.0-100.00); MEAN CORPUSCULAR HGB CONC 33.5 g/dl (32.0-36.0); PLATELET COUNT 286 K/uL (150-450); RED BLOOD COUNT 4.17 M/uL (4.00-6.00)
[2024-04-05 08:45] LABS: URINE KETONE 40 (NEGATIVE)
[2024-04-05 09:07] LABS: ALBUMIN 2.2 gm/dL (3.4-5.0); BILIRUBIN TOTAL 0.9 mg/dL (0.3-1.2); CALCIUM 8.5 mg/dL (8.5-10.1); CREATININE SERUM 0.49 mg/dL (0.70-1.30); FREE TRIODOTIRONINE 1.57 pg/ml (2.18-3.98); GFR 165.04; GLOBULINA 4.2 G/DL (2.4-3.5); MAGNESIUM 1.8 mg/dL (1.8-2.4); PHOSPHOROUS 2.8 mg/dL (2.5-4.9); POTASSIUM 3.5 mEq/L (3.5-5.1); T4 TOTAL 6.31 UG/DL (4.5-12.1); TOTAL PROTEIN 6.4 gm/dL (6.4-8.2); TSH 1.01 uIU/mL (0.358-3.74)
[2024-04-05 09:43] LABS: C-REACTIVE PROTEIN 8.03 MG/DL (0.00-0.29)
[2024-04-05] MEDS ORDERED: DEXTROSE 5 % AND 0.9 % NACL 1,000 ML IV SCH (10:30)
[2024-04-05] MEDS ORDERED: DEXTROSE 50 % IN WATER 0.5 G/ML DISP.SYRIN IV PRN (12:15)
[2024-04-05] MEDS ORDERED: ADENOSINE 3 MG/ML VIAL IV SCH ×2 (12:23→12:30)
[2024-04-05 16:03] VITALS: BP 109/69; O2SAT 98
[2024-04-06 00:52] VITALS: BP 98/64; O2SAT 97
[2024-04-06 08:00] VITALS: BP 99/59; O2SAT 96
[2024-04-06 08:14] LABS: HEMOGLOBIN 11.5 g/dL (13-16.00); MEAN CORPUSCULAR HEMOGLOBIN 28.5 pg (27.00-32.0); MEAN CORPUSCULAR HGB CONC 32.8 g/dl (32.0-36.0); PLATELET COUNT 262 K/uL (150-450); RED BLOOD COUNT 4.03 M/uL (4.00-6.00); RED CELL DISTRIBUTION WIDTH 16.9 % (11.5-14.5)
[2024-04-06 08:47] LABS: CALCIUM 7.9 mg/dL (8.5-10.1); CREATININE SERUM 0.59 mg/dL (0.70-1.30); GFR 133.2; MAGNESIUM 1.5 mg/dL (1.8-2.4); POTASSIUM 3.78 mEq/L (3.5-5.1)
[2024-04-06 09:46] LABS: PHOSPHOROUS 1.5 mg/dL (2.5-4.9)
[2024-04-06 16:48] VITALS: BP 108/72; O2SAT 99
[2024-04-07] VITALS: BP 93/54; O2SAT 98
[2024-04-07] MEDS ORDERED: MAGNESIUM SULFATE IN WATER 50 ML IV ONE (05:00)
[2024-04-07] MEDS ORDERED: MAGNESIUM SULFATE IN WATER 2 GM/50 ML PIGGYBAG IV ONE (06:22)
[2024-04-07 08:00] VITALS: BP 96/61; O2SAT 97
[2024-04-07] MEDS ORDERED: POTASSIUM PHOS,M-BASIC-D-BASIC 3 MM/ML VIAL IV NR (09:00)
[2024-04-07 17:28] VITALS: BP 101/66; O2SAT 98
[2024-04-07] MEDS ORDERED: METOPROLOL TARTRATE 25 MG TABLET PO SCH (21:00)
[2024-04-08 00:30] VITALS: BP 102/65; O2SAT 99
[2024-04-08 08:00] VITALS: BP 107/73; O2SAT 99
[2024-04-08] MEDS ORDERED: PANTOPRAZOLE SODIUM 40 MG TABLET.DR PO SCH (09:00)
[2024-04-08 09:29] LABS: HEMATOCRIT 28.9 % (39.0-48.0); HEMOGLOBIN 9.8 g/dL (13-16.00); MEAN CELL VOLUME 86.2 fL (80.0-100.00); MEAN CORPUSCULAR HEMOGLOBIN 29.2 pg (27.00-32.0); PLATELET COUNT 216 K/uL (150-450); RED BLOOD COUNT 3.35 M/uL (4.00-6.00); RED CELL DISTRIBUTION WIDTH 17.3 % (11.5-14.5)
[2024-04-08 09:32] LABS: ERYTHROCYTE SEDIMENTATION RATE 81 mm/hr
[2024-04-08 10:06] LABS: ALBUMIN 1.6 gm/dL (3.4-5.0); BILIRUBIN TOTAL 0.41 mg/dL (0.3-1.2); CALCIUM 7.1 mg/dL (8.5-10.1); CREATININE SERUM 0.35 mg/dL (0.70-1.30); GFR 243.34; GLOBULINA 3.2 G/DL (2.4-3.5); MAGNESIUM 1.6 mg/dL (1.8-2.4); PHOSPHOROUS 2.5 mg/dL (2.5-4.9); POTASSIUM 3.62 mEq/L (3.5-5.1); TOTAL PROTEIN 4.8 gm/dL (6.4-8.2)
[2024-04-08 10:07] LABS: C-REACTIVE PROTEIN 3.54 MG/DL (0.00-0.29)
[2024-04-08] MEDS ORDERED: LACTULOSE 20 G/30 ML BLIST.PACK PO SCH (11:14)
[2024-04-08] MEDS ORDERED: SODIUM CHLORIDE 0.45 % 1,000 ML IV SCH (12:15)
[2024-04-08 16:00] VITALS: BP 106/62; O2SAT 99
[2024-04-09 00:31] VITALS: BP 109/53; O2SAT 100
[2024-04-09] MEDS ORDERED: NA PHOS,M-B/NA PHOS,DI-BA 1 BOTTLE ENEMA RECTAL NR (05:00)
[2024-04-09] MEDS ORDERED: NA PHOS,M-B/NA PHOS,DI-BA 1 BOTTLE ENEMA RECTAL ONE ×2 (06:29→06:35)
[2024-04-09] MEDS ORDERED: MAGNESIUM SULFATE IN WATER 50 ML IV STA (07:16)
[2024-04-09 08:00] VITALS: BP 98/63; O2SAT 97
[2024-04-09] MEDS ORDERED: MIDAZOLAM HCL 2 MG/2 ML VIAL IV NR (10:30)
[2024-04-09] MEDS ORDERED: DIPHENHYDRAMINE HCL 50 MG/ML VIAL 1ML IV NR (10:30)
[2024-04-09 10:33] LABS: ABG PO2 87.4 mmHg (80-100); ABG pCO2 29.9 mmHg (35-45); BASE EXCESS -0.6 mmol/l; BICARBONATE 21.7 mmol/l (23-25); SaO2 97.4 %; Tco2 22.7 mmol/l
[2024-04-09 10:40] LABS: allen test SATISFACTORY; o2 21 %; puncture site RADIAL RIGHT
[2024-04-09 16:00] VITALS: BP 122/76; O2SAT 98
[2024-04-09] MEDS ORDERED: METRONIDAZOLE/SODIUM CHLORIDE 100 ML IV SCH (17:00)
[2024-04-09] MEDS ORDERED: CEFTRIAXONE SODIUM 2,000 MG VIAL IV SCH (17:00)
[2024-04-10] VITALS: BP 100/62; O2SAT 99
[2024-04-10 08:00] VITALS: BP 96/66; O2SAT 100
[2024-04-10 08:45] LABS: HEMATOCRIT 30.1 % (39.0-48.0); MEAN CELL VOLUME 87.6 fL (80.0-100.00); MEAN CORPUSCULAR HEMOGLOBIN 29.1 pg (27.00-32.0); MEAN CORPUSCULAR HGB CONC 33.2 g/dl (32.0-36.0); PLATELET COUNT 207 K/uL (150-450); RED BLOOD COUNT 3.44 M/uL (4.00-6.00)
[2024-04-10 09:33] LABS: CALCIUM 8.1 mg/dL (8.5-10.1); CREATININE SERUM 0.39 mg/dL (0.70-1.30); GFR 214.77; MAGNESIUM 1.8 mg/dL (1.8-2.4); PHOSPHOROUS 2.9 mg/dL (2.5-4.9); POTASSIUM 4.04 mEq/L (3.5-5.1)
[2024-04-10 09:35] LABS: C-REACTIVE PROTEIN 5.62 MG/DL (0.00-0.29)
[2024-04-10] MEDS ORDERED: CLOTRIMAZOLE 10 MG TROCHE MM SCH (13:00)
[2024-04-10 16:00] VITALS: BP 99/65; O2SAT 100
[2024-04-11 00:35] VITALS: BP 94/57; O2SAT 100
[2024-04-11 08:00] VITALS: BP 106/69; O2SAT 100
[2024-04-11 16:35] VITALS: BP 90/55; O2SAT 99
[2024-04-12 00:29] VITALS: BP 101/65; O2SAT 97
[2024-04-12 07:55] LABS: HEMATOCRIT 31.9 % (39.0-48.0); HEMOGLOBIN 10.5 g/dL (13-16.00); MEAN CELL VOLUME 87.6 fL (80.0-100.00); MEAN CORPUSCULAR HEMOGLOBIN 28.8 pg (27.00-32.0); MEAN CORPUSCULAR HGB CONC 32.8 g/dl (32.0-36.0); PLATELET COUNT 220 K/uL (150-450); RED BLOOD COUNT 3.64 M/uL (4.00-6.00); RED CELL DISTRIBUTION WIDTH 16.9 % (11.5-14.5)
[2024-04-12 08:26] LABS: ALBUMIN 1.8 gm/dL (3.4-5.0); BILIRUBIN TOTAL 0.33 mg/dL (0.3-1.2); CALCIUM 7.9 mg/dL (8.5-10.1); CREATININE SERUM 0.44 mg/dL (0.70-1.30); GFR 186.86; GLOBULINA 3.8 G/DL (2.4-3.5); PHOSPHOROUS 2.3 mg/dL (2.5-4.9); POTASSIUM 3.91 mEq/L (3.5-5.1); TOTAL PROTEIN 5.6 gm/dL (6.4-8.2)
[2024-04-12 08:27] LABS: C-REACTIVE PROTEIN 5.25 MG/DL (0.00-0.29)
[2024-04-12 09:00] VITALS: BP 100/63; O2SAT 100
[2024-04-12 16:00] VITALS: BP 98/65; O2SAT 98
[2024-04-13] VITALS: BP 102/64; O2SAT 100
[2024-04-13 09:06] VITALS: BP 101/64; O2SAT 100
[2024-04-13 16:00] VITALS: BP 99/56; O2SAT 100
[2024-04-14] VITALS: BP 102/62; O2SAT 98
[2024-04-14 08:00] VITALS: BP 93/59; O2SAT 95
[2024-04-14] MEDS ORDERED: SILVER SULFADIAZINE 50 GM,NYSTATIN 30 GM,ZINC OXIDE 30 GM TOP SCH (09:00)
[2024-04-14] MEDS ORDERED: CHLORDIAZEPOXID25 MG PO (13:24)
[2024-04-14] MEDS ORDERED: PANTOPRAZOLE SO40 MG PO (13:24)
[2024-04-14] MEDS ORDERED: LOPRESSOR25 MG PO (13:24)
[2024-04-14] MEDS ORDERED: THIAMINE HCL100 MG PO (13:24)
[2024-04-14 16:37] VITALS: BP 94/63; O2SAT 100
== END 2024-04-14 18:12 | disposition home or self-care (01) | DRG 872 ==
LOC: ER 20:43 → SURH 04-02 18:38 → SEC-K 04-02 18:38 → EDBD 04-02 18:38 → SEC-K 04-02 18:38 → SURH 04-03 07:21
PROVIDERS: Emergency Medicine; General Practice; Internal Medicine Geriatric Medicine; Internal Medicine Infectious Disease; ADMIT Colon & Rectal Surgery; ATTEND Colon & Rectal Surgery
PROC: BW21ZZZ Computerized Tomography (CT Scan) of Abdomen and Pelvis (ICD-10-PCS; principal; 2024-04-01)
PROC: B246ZZZ Ultrasonography of Right and Left Heart (ICD-10-PCS; 2024-04-04)
PROC: 4A12X4Z Monitoring of Cardiac Electrical Activity, External Approach (ICD-10-PCS; 2024-04-04)
PROC: 30233N1 Transfusion of Nonautologous Red Blood Cells into Peripheral Vein, Percutaneous Approach (ICD-10-PCS; 2024-04-04)
PROC: 02HV33Z Insertion of Infusion Device into Superior Vena Cava, Percutaneous Approach (ICD-10-PCS; 2024-04-07)
PROC: BB24ZZZ Computerized Tomography (CT Scan) of Bilateral Lungs (ICD-10-PCS; 2024-04-09)
PROC: 0DJD8ZZ Inspection of Lower Intestinal Tract, Via Natural or Artificial Opening Endoscopic (ICD-10-PCS; 2024-04-09)
PROC: BG44ZZZ Ultrasonography of Thyroid Gland (ICD-10-PCS; 2024-04-10)
DX: A41.9 Sepsis, unspecified organism (principal); N39.0 Urinary tract infection, site not specified; C20 Malignant neoplasm of rectum; C78.00 Secondary malignant neoplasm of unspecified lung; I47.10 Supraventricular tachycardia, unspecified; K92.2 Gastrointestinal hemorrhage, unspecified; B96.4 Proteus (mirabilis) (morganii) as the cause of diseases classified elsewhere; N41.8 Other inflammatory diseases of prostate; K62.89 Other specified diseases of anus and rectum; I11.9 Hypertensive heart disease without heart failure; F17.200 Nicotine dependence, unspecified, uncomplicated; K44.9 Diaphragmatic hernia without obstruction or gangrene; D64.89 Other specified anemias